=== PATIENT | female | born 1960 | race American Indian/Alaskan Native ===

== ENCOUNTER 2019-05-18 20:54 | Emergency (ER) | payer OTHER ==
[2019-05-18] MEDS ORDERED: ONDANSETRON 4 MG/2 ML INJ ONE (21:27)
[2019-05-18] MEDS ORDERED: SODIUM CHLORIDE 0.9% 1000 ML 1,000 ML IV ONE ×2 (21:34→22:38)
[2019-05-18] MEDS ORDERED: ONDANSETRON 4 MG/2 ML INJ IV ONE (21:34)
[2019-05-18 21:57] LABS: Basophils # (Auto) 0.1 K/mm3 (0.0-0.1); Basophils % (Auto) 0.4 % (0.0-1.8); Hematocrit 41.8 % (30.3-42.9); Hemoglobin 13.3 gm/dl (10.1-14.3); Lymphocytes # (Auto) 1.1 K/mm3 (1.2-5.4); Lymphocytes % (Auto) 5.7 % (13.4-35.0); Mean Corpuscular HGB Conc 32 % (30-34); Mean Corpuscular Volume 93 fl (79-97); Monocytes # (Auto) 0.8 K/mm3 (0.0-0.8); Monocytes % (Auto) 4.1 % (0.0-7.3); Platelet Count 221 K/mm3 (140-440); Red Blood Count 4.51 M/mm3 (3.65-5.03); Red Cell Distribution Width 14.2 % (13.2-15.2)
[2019-05-18 22:18] LABS: Calcium 9.3 mg/dL (8.4-10.2)
--- NOTE | 2019-05-19 00:56 | Emergency Department Report ---
ED General Adult HPI - General Chief complaint: Syncope Stated complaint: SURGERY COMPLICATIONS Time Seen by Provider: 05/18/19 21:24 Source: patient, family, EMS Mode of arrival: Stretcher Limitations: No Limitations - History of Present Illness Initial comments: Patient is a 58-year-old [place] female with a past medical history of mild chronic renal insufficiency of CVA hypertension who is several hours status post a panniculectomy at approximately noon today. The patient states that before leaving the surgical center her blood pressure was elevated she was given several doses of antihypertensive medications. Patient does not remember which medication she took. When she arrived home she took 1 Percocet in order to try to get the head of the pain returning from her surgical wounds and the patient states 30 minutes later she had a syncopal episode. Patient after waking had multiple episodes of nausea and vomiting which is bilious in nature. Patient states she received 4 mg of Zofran in route of the still is having nausea and some mild dizziness. Patient denies fevers chills cough, congestion at this time. Associated Symptoms: diaphoresis, nausea/vomiting, shortness of breath (patient believes her mild shortness of breath secondary to the binder that she has on her abdomen). denies: chest pain, cough, fever/chills, headaches, loss of appetite, malaise, rash, seizure - Related Data Allergies Allergy/AdvReac Type Severity Reaction Status Date / Time hydrochlorothiazide AdvReac Anaphylaxis Verified 05/18/19 21:18 labetalol AdvReac Anaphylaxis Verified 05/18/19 21:18 lisinopril AdvReac Angioedema Verified 05/18/19 21:18 ED Review of Systems ROS: Stated complaint: SURGERY COMPLICATIONS Other details as noted in HPI Comment: All other systems reviewed and negative ED Past Medical Hx - Past Medical History Previous Medical History?: Yes Hx Hypertension: Yes Hx CVA: Yes (2018) Hx Heart Attack/AMI: Yes (2018) Additional medical history: Cardiomyopathy - Social History Smoking Status: Never Smoker Substance Use Type: Marijuana ED Physical Exam - General Limitations: No Limitations General appearance: alert, in distress (patient is pale and clammy and appears very nervous) - Head Head exam: Present: atraumatic, normocephalic - Eye Eye exam: Present: normal appearance - ENT ENT exam: Present: normal orophraynx, mucous membranes moist - Neck Neck exam: Present: normal inspection - Respiratory Respiratory exam: Present: normal lung sounds bilaterally. Absent: respiratory distress, wheezes, rales, rhonchi - Cardiovascular Cardiovascular Exam: Present: normal rhythm, tachycardia. Absent: systolic murmur, diastolic murmur, rubs, gallop - GI/Abdominal GI/Abdominal exam: Present: soft, tenderness (her lower abdomen), normal bowel sounds, other (patient has [address] which is draining serosanguineous fluid). Absent: distended, guarding, rebound - Extremities Exam Extremities exam: Present: normal inspection - Back Exam Back exam: Present: normal inspection - Neurological Exam Neurological exam: Present: alert, oriented X3 - Psychiatric Psychiatric exam: Present: normal affect, normal mood - Skin Skin exam: Present: warm, dry, intact, normal color. Absent: rash ED Course Vital Signs 05/18/19 05/18/19 05/18/19 21:08 21:15 21:16 Temperature 97.1 F L Pulse Rate 96 H 105 H Respiratory 14 18 18 Rate Blood Pressure 121/75 O2 Sat by Pulse 100 100 100 Oximetry 05/18/19 05/18/19 05/18/19 21:30 21:45 22:00 Temperature Pulse Rate 117 H 113 H 85 Respiratory 20 15 13 Rate Blood Pressure 115/86 136/93 O2 Sat by Pulse 100 100 Oximetry 05/18/19 05/18/19 22:15 22:30 Temperature Pulse Rate 82 88 Respiratory 17 21 Rate Blood Pressure 124/88 136/91 O2 Sat by Pulse 96 Oximetry ED Medical Decision Making - Lab Data Result diagrams: 05/18/19 21:42 05/18/19 21:42 Lab Results 05/18/19 05/18/19 Range/Units 21:42 21:42 WBC 18.5 H (4.5-11.0) K/mm3 RBC 4.51 (3.65-5.03) M/mm3 Hgb 13.3 (10.1-14.3) gm/dl Hct 41.8 (30.3-42.9) % MCV 93 (79-97) fl MCH 30 (28-32) pg MCHC 32 (30-34) % RDW 14.2 (13.2-15.2) % Plt Count 221 (140-440) K/mm3 Lymph % (Auto) 5.7 L (13.4-35.0) % Williamson % (Auto) 4.1 (0.0-7.3) % Eos % (Auto) 0.0 (0.0-4.3) % Baso % (Auto) 0.4 (0.0-1.8) % Lymph # 1.1 L (1.2-5.4) K/mm3 Williamson # 0.8 (0.0-0.8) K/mm3 Eos # 0.0 (0.0-0.4) K/mm3 Baso # 0.1 (0.0-0.1) K/mm3 Seg Neutrophils % 89.8 H (40.0-70.0) % Seg Neutrophils # 16.7 H (1.8-7.7) K/mm3 Sodium 137 (137-145) mmol/L Potassium 4.1 (3.6-5.0) mmol/L Chloride 102.5 (98-107) mmol/L Carbon Dioxide 16 L (22-30) mmol/L Anion Gap 23 mmol/L BUN 18 H (7-17) mg/dL Creatinine 1.4 H (0.7-1.2) mg/dL Estimated GFR 46 ml/min BUN/Creatinine Ratio 13 % Glucose 255 H (65-100) mg/dL Calcium 9.3 (8.4-10.2) mg/dL Discussed the patient's laboratory studies with her contact person physician for [facility]. Patient's baseline creatinine is 1.3 - Medical Decision Making She was given an additional dose of anti-medics and IV fluids. Patient over the next several rows monitored and she is returned back to her baseline. Patient states her nausea improves as well as her nervousness and dizziness. The patient likely still had some anesthesia in her system and after taking the oxyc odone became nauseous and had a syncopal episode. Patient appears to be well at this time. Patient is safe for discharge. Critical care attestation.: If time is entered above; I have spent that time in minutes in the direct care of this critically ill patient, excluding procedure time. ED Disposition Clinical Impression: Anesthesia complication Qualifiers: Encounter type: initial encounter Qualified Code(s): T41.45XA - Adverse effect of unspecified anesthetic, initial encounter Syncope Qualifiers: Syncope type: vasovagal syncope Qualified Code(s): R55 - Syncope and collapse Nausea & vomiting Qualifiers: Vomiting type: bilious vomiting Qualified Code(s): R11.14 - Bilious vomiting Disposition: - TO HOME OR SELFCARE Is pt being admited?: No Does the pt Need Aspirin: No Condition: Stable Instructions: Syncope (ED) Referrals: PRIMARY CARE, [Primary Care Provider] - 3-5 Days Time of Disposition: 00:57
[2019-05-19 01:03] VITALS: BP 130/85
== END 2019-05-19 01:15 | disposition home or self-care (01) ==
LOC: ED 20:54
DX: T41.45XA Adverse effect of unspecified anesthetic, initial encounter (principal); R55 Syncope and collapse; R11.2 Nausea with vomiting, unspecified; I10 Essential (primary) hypertension; F12.10 Cannabis abuse, uncomplicated; Z88.8 Allergy status to other drugs, medicaments and biological substances; Z86.73 Personal history of transient ischemic attack (TIA), and cerebral infarction without residual deficits; Y92.89 Other specified places as the place of occurrence of the external cause
CPT/HCPCS: 36415; 80048; 85025; 96361; 96374; 99284; J2405; J7030